=== PATIENT | male | born 1970 | race Caucasian/White ===

== ENCOUNTER → 2021-04-15 15:25 | Outpatient (CLI) | payer OTHER, SELFPAY ==
--- NOTE | ~2021-04-15 | XR_ITS ---
XR abdomen/kub 1V 04/15/2021 16:02 Indication: Left kidney stones Procedure: KUB Comparison: No prior studies for comparison. Findings: There is a left internal ureteral stent present. There are stones in the proximal and dista l aspects of the left ureter. There are pelvic phleboliths. Bowel gas pattern nonobstructive. Moderat e colonic fecal loading. No acute osseous abnormality. Impression: 1: Left proximal and distal ureteral stones with left internal ureteral stent in expected position. Reviewed, dictated and finalized at location B. SHUNTER Impression: 1: Left proximal and distal ureteral stones with left internal ureteral stent i n expected position.
== END ==
PROVIDERS: PCP Family Medicine; Visit Provider Urology
DX: N20.0 Calculus of kidney (principal)
CPT/HCPCS: 74018

== ENCOUNTER 2021-04-19 02:16 | Day surgery (SDC) | payer OTHER, SELFPAY ==
[2021-04-16 10:56] VITALS: BMI 31.4
--- NOTE | 2021-04-16 11:10 | PC.NURSE ---
Report to the Outpatient Waiting Room, entrance under the green pavilion located off [facility], at time 6:00 on date 04/19/21. OR Time: 7:30. - You and your visitor will be asked a series of questions to screen for COVID 19 for your protection. - A mask is required within the hospital. One visitor will be allowed to accompany the patient into the hospital. Patients visitor will be instructed to remain with patient at all times or leave the building. We will allow the visitor to come back to the postoperative area when patient is ready. Preoperative COVID Testing Requirements: No COVID Test needed if: (proof is required; if not received patient will have Rapid Test prior to entry) - Patient has received COVID Vaccine at least 14 days prior to procedure date or - Patient has positive COVID test result within last 90 days of surgery date. COVID Test needed if above criteria is not met Patients may have clear liquids (water, carbonated beverages, clear teas, apple juice) until 3 hours prior to surgery (4:30) with a maximum of 20 ounces. - No food from midnight until time of surgery Take the following medications with a SIP of water the morning of surgery: NONE Medications to discontinue per physician: BABY ASPIRIN Date to take last dose: STOP IMMEDIATELY Please no make-up, nail azeri, hairspray, perfume, deodorant, or body powder the day of surgery. No jewelry (including any body piercings) or valuables the day of surgery, leave them at home. Please take a shower or bath the night before, or the morning of, surgery with an antibacterial soap. Wear comfortable, loose fitting clothing. - Jewelry must be removed prior to entering the operating room. Rings and piercings that are not removed may be cut off. - The hospital will not accept responsibility for valuables. - Please leave all valuables, including medications, at home the day of surgery. If you are going home after surgery, a licensed local company flatbed truck driver must drive you home. - NO public transportation without another adult. - We recommend that an adult stay with you for 24 hours following discharge. - We also recommend that you do not drive, make important decision, drink alcoholic beverages, or take any drugs that were not prescribed by your health care provider for at least 24 hours after your discharge time. Follow any additional instructions given to you from your surgeon. Telephone instructions given to AMY URIBE and asked if any additional questions and then verbalized understanding. Patient advised to call surgeon office or pre surgery nurse liaison [phone] if any additional questions.
[2021-04-19] VITALS (7 sets, daily range): BP systolic 102–131; BP diastolic 74–96; PULSE 72–86; RESP 8–16; TEMP 36.3–36.4; O2SAT 97–100
--- NOTE | ~2021-04-19 | XR_ITS ---
EXAMINATION: XR abdomen/kub 1V DATE: 04/19/2021 06:03 INDICATION: Left ureteral stone. TECHNIQUE: A supine view of the abdomen on 2 radiographs was obtained. COMPARISON: Abdomen radiographs 04/15/2021 FINDINGS: There are no dilated loops of bowel. There is a left internal ureteral stent in expected po sition. There are 3 mm and 4 mm stones in right kidney lower pole. There is a 6 x 3 mm stone in dista l left ureter. There are two 2 mm stones in proximal left ureter. There are phleboliths in the pelvis . IMPRESSION: 1. Stones in left ureter with left internal ureteral stent in expected position. 2. Right kidney stones. Reviewed, dictated and finalized at location A. L APPLICATION DEVELOPER IMPRESSION: 1. Stones in left ureter with left internal ureteral stent in expected position . 2. Right kidney stones.
[2021-04-19] MEDS: LACTATED RINGERS 1,000 ML 30 ML IV CONT (06:30)
--- NOTE | 2021-04-19 06:33 | WPDANESEPPF ---
Anes - Initial Pre Proc Eval Procedure: Operation Date: 04/19/21 07:30 Proposed Procedures p Left Renal Extracorporeal Shock Wave Lithotripsy - Jacek Tariq MD s Cystoscopy with Left Ureteral Stent Removal - Jacek Tariq MD Date/Time: 04/19/21 06:33 Surgeon: Jacek Tariq MD Pre Op Diagnosis: left kidney stone Patient Data Age: 50 Gender: M Height: 1.8 m Weight: 102.06 kg Allergies Allergy/AdvReac Type Severity Reaction Status Date / Time No Known Allergies Allergy Verified 04/16/21 10:52 Home Medications Medication Instructions Recorded Confirmed Type aspirin [Baby Aspirin] 81 mg PO DAILY 04/16/21 04/16/21 History ezetimibe 10 mg PO DAILY 04/16/21 04/16/21 History glipizide 10 mg PO DAILY 04/16/21 04/16/21 History lisinopril 10 mg PO DAILY 04/16/21 04/16/21 History metformin 1,000 mg PO BID 04/16/21 04/16/21 History omeprazole 20 mg PO DAILY 04/16/21 04/16/21 History pravastatin 80 mg PO DAILY 04/16/21 04/16/21 History tamsulosin 0.4 mg PO DAILY 04/16/21 04/16/21 History Patient hx anesthesia problems: none Family hx anesthesia problems: none Results Review: All pre-operative results and documents have been reviewed as part of the pre-operative evaluation. [facility] Past Medical History Medical History (Updated 04/19/21 @ 06:34 by Neto Schroeder MD) Atrial fibrillation Diabetes HTN (hypertension) Hyperlipidemia Surgical History Surgical History (Updated 04/19/21 @ 06:34 by Neto Schroeder MD) S/P cystoscopy with ureteral stent placement Social History Social History Smoking status: Never smoker Alcohol intake: never Substance use: never Substance use type: does not use Living arrangements: with family Spiritual care concerns: No Anes - Eval Final PreProcedure Day of Procedure 04/19/21 06:33 Patient weight: overweight Heart: regular rate and rhythm Lungs: clear to auscultation Airway: Mallampati scale class II Neurological: alert and oriented Last oral intake: >/= 8 hours ASA classification: II Emergent: no Anesthetic plan: proceed Anesthesia type and monitoring: general LMA and standard monitoring Results Review: All pre-operative results and documents have been reviewed as part of the pre-operative evaluation. Informed Consent: The patient's anesthetic plan and its attendant risks and benefits were discussed with the patient/family/POA. Questions were solicited and answers provided to the satisfaction of the patient/family/POA.
--- NOTE | 2021-04-19 06:46 | WPDHPUPDATE1 ---
History and Physical Update Update Date/Time: 04/19/21 06:46 History and Physical has been reviewed, including an updated exam of the patient. There are NO changes in the patient's condition. Risks, benefits, and alternatives have been discussed and questions answered. Patient agrees to proceed with procedure.
[2021-04-19 06:56] LABS: Glucose Point of Care 184 mg/dl (65-105)
[2021-04-19 07:07] LABS: Prothrombin Time 12.4 Seconds (11.1-14.7)
[2021-04-19 07:08] LABS: Partial Thromboplastin Time 26.7 SECONDS (22.3-36.8)
[2021-04-19] MEDS: ceFAZolin 2 GM/D5W 50 ML 2 GM/50 ML BAG IVPB (07:29)
--- NOTE | 2021-04-19 07:46 | W.PM.PROC2 ---
Procedure Note - Detailed Date of Procedure 04/19/21 Pre-op Diagnosis Left kidney stone Post-op Diagnosis same Procedure Performed Left ureteral ESWL Cystoscopy with left stent removal Surgeon Jacek Tariq MD Anesthesia general Description of Procedure The patient was brought to the operative suite where he was placed in the supine position on the Dornier lithotripsy table. The focal point of the lithotripter was placed at a 7x4mm left ureteral calculus. A total of 3000 shocks were delivered at a power setting of 5. There appeared to be good fragmentation of the stone. I then performed cystoscopy with a 16F flexible cystoscope and removed his indwelling stent with a grasper with ease. The patient tolerated the procedure well and was taken to the recovery room in good condition. Drains No Packing No Pathology none sent Complications No immediate complications Condition stable Disposition PACU
[2021-04-19 08:45] LABS: Glucose Point of Care 181 mg/dl (65-105)
== END 2021-04-19 09:55 | disposition home or self-care (01) ==
PROVIDERS: PCP Family Medicine; Visit Provider Urology
PROC: (CPT 50590; principal; 2021-04-19 07:30)
PROC: (CPT 52310; 2021-04-19 07:30)
DX: N20.0 Calculus of kidney (principal); K21.9 Gastro-esophageal reflux disease without esophagitis; I10 Essential (primary) hypertension; E78.00 Pure hypercholesterolemia, unspecified; E11.9 Type 2 diabetes mellitus without complications; Z79.84 Long term (current) use of oral hypoglycemic drugs; Z79.82 Long term (current) use of aspirin; Z79.899 Other long term (current) drug therapy; I48.91 Unspecified atrial fibrillation; E78.5 Hyperlipidemia, unspecified
CPT/HCPCS: 50590; 52310; 36415; 74018; 82948; 85610; 85730; A9270; J0690; J2250; J2405; J2704; J3010; J7030; J7120